=== PATIENT | female | born 1960 | race Two or more races ===

== ENCOUNTER 2022-06-11 07:32 | Outpatient (CLI) | payer OTHER ==
[~2022-06-11 07:32] MED LIST: CIPRO500 MG PO; PLAVIX75 MG; URETRON DS1 TAB PO
== END 2022-06-11 07:54 | disposition home or self-care (01) ==
LOC: MAMO-SONO 07:32
PROVIDERS: ATTEND General Practice
DX: R50.9 Fever, unspecified (principal); Z12.11 Encounter for screening for malignant neoplasm of colon; R10.9 Unspecified abdominal pain; Z12.31 Encounter for screening mammogram for malignant neoplasm of breast; K21.9 Gastro-esophageal reflux disease without esophagitis; R92.2 Inconclusive mammogram; N61.20 Granulomatous mastitis, unspecified breast

== ENCOUNTER 2022-06-11 09:44 | Outpatient (CLI) | payer OTHER | END 2022-06-11 10:03 | disposition home or self-care (01) | LOC: LAB 09:44 | PROVIDERS: ATTEND General Practice | DX: E03.9 Hypothyroidism, unspecified (principal); R80.9 Proteinuria, unspecified; R79.1 Abnormal coagulation profile; R73.09 Other abnormal glucose; Z12.11 Encounter for screening for malignant neoplasm of colon; Z11.1 Encounter for screening for respiratory tuberculosis; Z11.3 Encounter for screening for infections with a predominantly sexual mode of transmission; Z11.59 Encounter for screening for other viral diseases; Z12.4 Encounter for screening for malignant neoplasm of cervix; Z13.0 Encounter for screening for diseases of the blood and blood-forming organs and certain disorders involving the immune mechanism; Z13.1 Encounter for screening for diabetes mellitus; Z13.220 Encounter for screening for lipoid disorders; Z13.228 Encounter for screening for other metabolic disorders; Z13.29 Encounter for screening for other suspected endocrine disorder ==

== ENCOUNTER 2022-06-18 10:06 | Outpatient (CLI) | payer OTHER | END 2022-06-18 10:07 | disposition home or self-care (01) | LOC: LAB 10:06 | PROVIDERS: ATTEND General Practice | DX: Z12.11 Encounter for screening for malignant neoplasm of colon (principal); Z11.1 Encounter for screening for respiratory tuberculosis; Z11.3 Encounter for screening for infections with a predominantly sexual mode of transmission; Z11.59 Encounter for screening for other viral diseases; Z12.4 Encounter for screening for malignant neoplasm of cervix; Z13.0 Encounter for screening for diseases of the blood and blood-forming organs and certain disorders involving the immune mechanism; Z13.1 Encounter for screening for diabetes mellitus; Z13.220 Encounter for screening for lipoid disorders; Z13.228 Encounter for screening for other metabolic disorders; Z13.29 Encounter for screening for other suspected endocrine disorder ==

== ENCOUNTER 2024-07-23 13:16 | Inpatient (IN) | payer OTHER ==
[~2024-07-23] VITALS: Ht 157.5 cm; Wt 93.4 kg
--- NOTE | 2024-07-23 14:03 | NUR ---
SE RECIBE PACIENTE ALERTA Y ORIENTADA X3 REFIERE VENIR POR DOLOR ABDOMINAL HACE ELVA FROST. NO REFIERE PRESENATAR NAUSEAS, VOMITOS NI DIARREAS.
[2024-07-23] MEDS ORDERED: FAMOtidine 10 MG/ML (4ML VIAL) IV PUSH ONE (14:30)
[2024-07-23 15:04] LABS: HEMATOCRIT 42.4 % (36.0-45.00); HEMOGLOBIN 14.2 g/dL (12.0-15.00); MEAN CELL VOLUME 79.8 fL (80.00-100.00); MEAN CORPUSCULAR HEMOGLOBIN 26.7 pg (27.00-32.0); MEAN CORPUSCULAR HGB CONC 33.4 g/dl (32.0-36.0); PLATELET COUNT 272 K/uL (150-450); RED BLOOD COUNT 5.31 M/uL (4.00-6.00); RED CELL DISTRIBUTION WIDTH 14.5 % (11.5-14.5)
--- NOTE | 2024-07-23 15:09 | NUR ---
PTE FEMENIANA EVALUADA POR . RN BEST ORIENTA SOBRE ORDEN DE [place] REFIERE COMPRENDER. COLECTA MUESTRAS DE LABORATORIOS Y SE CANALIZA VENA BAJO MEDIDAS ASEPTICAS. SE ADMINISTRA MEDICAMENTO, BAJO MEDIDAS ASEPTICAS. SE NOTIFICA A RADIOLGIA PARA CT PENDIENTE.
[2024-07-23 15:35] LABS: ALBUMIN 3.6 gm/dL (3.4-5.0); BILIRUBIN TOTAL 0.75 mg/dL (0.3-1.2); CALCIUM 9.7 mg/dL (8.5-10.1); CREATININE SERUM 0.83 mg/dL (0.55-1.02); GFR 69.89; GLOBULINA 4.4 G/DL (2.4-3.5); POTASSIUM 4.09 mEq/L (3.5-5.1)
[2024-07-23 16:34] LABS: URINE APPEARANCE Clear; URINE BILIRRUBIN Negative (NEGATIVE); URINE BLOOD Negative; URINE COLOR Yellow; URINE GLUCOSE Negative (NEGATIVE); URINE KETONE Negative (NEGATIVE); URINE LEUKOCYTE Moderate; URINE NITRATE Negative; URINE PROTEIN Negative (NEGATIVE); URINE UROBILINOGEN 0.2 E.U./dl
[2024-07-23 16:39] LABS: URINE BACTERIA 352.7 uL (0.0-1933); URINE EPITHELIAL CELLS 33.6 uL (0.0-38.8); URINE RBC 9.1 uL (0.0-20.8); URINE WBC 49.4 uL (0.0-23.2)
[2024-07-23] MEDS ORDERED: PIPERACILLIN/TAZOBACTAM SODIUM 3.375 GM in DEXTROSE 5 % IN WATER 100 ML IV SCH (20:27)
[2024-07-23] MEDS ORDERED: ONDANSETRON HCL 4 MG in 0.9 % SODIUM CHLORIDE 50 ML IV PRN (20:30)
[2024-07-23] MEDS ORDERED: ACETAMINOPHEN 500 MG GEL..CAP PO PRN (20:30)
[2024-07-23] MEDS ORDERED: MEPERIDINE HCL/PF 25 MG/ML VIAL IM ONE (20:30)
[2024-07-23] MEDS ORDERED: MEPERIDINE HCL/PF 25 MG/ML VIAL IM PRN (20:30)
[2024-07-23] MEDS ORDERED: 0.9 % SODIUM CHLORIDE 1,000 ML IV SCH (20:30)
[2024-07-23 23:30] VITALS: BP 137/39; O2SAT 97
[2024-07-23 23:37] LABS: INR 1.08; PARTIAL THROMBOPLASTIN TIME 28.8 SECONDS (22.0-34.0); PROTHROMBIN TIME 11.7 SECONDS (9.0-11.5)
[2024-07-24 02:00] VITALS: BP 113/72; O2SAT 97
[2024-07-24 04:00] VITALS: BP 100/63; O2SAT 98
[2024-07-24 08:02] VITALS: BP 92/59; O2SAT 98
[2024-07-24] MEDS ORDERED: FAMOTIDINE/PF 20 MG in 0.9 % SODIUM CHLORIDE 8 ML IV PUSH SCH (09:00)
[2024-07-24] MEDS ORDERED: ENOXAPARIN SODIUM 40 MG/0.4 ML SYRINGE SUBCUTANEO SCH (09:00)
[2024-07-24 17:44] VITALS: BP 126/70
[2024-07-25 01:52] VITALS: BP 120/72; O2SAT 96
[2024-07-25 10:06] VITALS: BP 132/80; O2SAT 97
[2024-07-25 18:16] VITALS: BP 125/75
[2024-07-26 00:56] VITALS: BP 121/77; O2SAT 97
[2024-07-26 08:15] VITALS: BP 130/84; O2SAT 97
[2024-07-26 19:08] VITALS: BP 139/75
[2024-07-27 01:15] VITALS: BP 137/76; O2SAT 96
[2024-07-27 06:15] LABS: HEMATOCRIT 37.3 % (36.0-45.00); MEAN CELL VOLUME 80.7 fL (80.00-100.00); MEAN CORPUSCULAR HGB CONC 32.2 g/dl (32.0-36.0); PLATELET COUNT 272 K/uL (150-450); RED BLOOD COUNT 4.62 M/uL (4.00-6.00); RED CELL DISTRIBUTION WIDTH 13.8 % (11.5-14.5)
[2024-07-27 06:49] LABS: ALBUMIN 2.8 gm/dL (3.4-5.0); BILIRUBIN TOTAL 0.35 mg/dL (0.3-1.2); CALCIUM 8.8 mg/dL (8.5-10.1); CREATININE SERUM 0.71 mg/dL (0.55-1.02); GFR 83.69; GLOBULINA 3.1 G/DL (2.4-3.5); POTASSIUM 3.65 mEq/L (3.5-5.1); TOTAL PROTEIN 5.9 gm/dL (6.4-8.2)
[2024-07-27 09:01] LABS: FECAL LEUKOCYTES POSITIVE (NEGATIVE)
[2024-07-27 10:28] VITALS: BP 157/72; O2SAT 97
[2024-07-27] MEDS ORDERED: VANCOMYCIN HCL 125 MG/7.5 ML BLIST.PACK PO SCH (13:00)
[2024-07-27 18:00] VITALS: BP 156/85
[2024-07-28 01:03] VITALS: BP 125/76; O2SAT 98
[2024-07-28 08:48] VITALS: BP 122/76
[2024-07-28] MEDS ORDERED: METROnidazole 500 MG TABLET PO SCH (17:00)
[2024-07-28] MEDS ORDERED: AMLODIPINE BESYLATE 5 MG TABLET PO STA (18:06)
[2024-07-28 19:12] VITALS: BP 180/80; O2SAT 98
[2024-07-28 20:52] VITALS: BP 140/70
[2024-07-28] MEDS ORDERED: CIPROFLOXACIN HCL 500 MG TABLET PO SCH (21:00)
[2024-07-28] MEDS ORDERED: FAMOtidine 20 MG TABLET PO SCH (21:00)
== END 2024-07-28 21:18 | disposition home or self-care (01) | DRG 392 ==
LOC: ER 13:18 → MEDI 21:37 → MEDJ 07-27 10:06
PROVIDERS: General Practice; Internal Medicine Infectious Disease; Specialist/Technologist, Other Nephrology; ADMIT Internal Medicine Pulmonary Disease; ATTEND Internal Medicine Pulmonary Disease
PROC: BW21YZZ Computerized Tomography (CT Scan) of Abdomen and Pelvis using Other Contrast (ICD-10-PCS; principal; 2024-07-23)
DX: K57.32 Diverticulitis of large intestine without perforation or abscess without bleeding (principal)

== ENCOUNTER → 2024-09-05 | Emergency (ER) | payer OTHER ==
[~2024-09-05] VITALS: Ht 157.5 cm; Wt 90.7 kg
[~2024-09-05] MED LIST changes: +KETOROLAC TROMETHAMINE 60 MG VIAL IM ONE; +ORPHENADRINE CITRATE 30 MG/ML AMPUL IM ONE
== END | disposition home or self-care (01) ==
LOC: ER 06:38
DX: R07.81 Pleurodynia (principal); Z88.6 Allergy status to analgesic agent

== ENCOUNTER 2024-12-15 07:08 | Outpatient (CLI) | payer OTHER ==
[~2024-12-15 07:08] MED LIST changes: -KETOROLAC TROMETHAMINE 60 MG VIAL IM ONE; -ORPHENADRINE CITRATE 30 MG/ML AMPUL IM ONE
== END 2024-12-15 07:28 | disposition home or self-care (01) ==
LOC: RAD 07:08
PROVIDERS: ATTEND General Practice
DX: R05.9 Cough, unspecified (principal); R06.02 Shortness of breath; R07.89 Other chest pain; M25.522 Pain in left elbow; M79.602 Pain in left arm; R10.9 Unspecified abdominal pain; R10.10 Upper abdominal pain, unspecified

== ENCOUNTER 2025-05-07 07:08 | Outpatient (CLI) | payer OTHER | END 2025-05-07 07:12 | disposition home or self-care (01) | LOC: TOM 07:08 | PROVIDERS: ATTEND General Practice | DX: R10.9 Unspecified abdominal pain (principal); R11.0 Nausea; R10.2 Pelvic and perineal pain ==